=== PATIENT | female | born 1960 | race Caucasian/White ===

== ENCOUNTER → 2024-03-11 14:52 | Outpatient (REF) | payer BC, SELFPAY | LOC: RAD 14:52 | PROVIDERS: ATTENDING PHYSICIAN Obstetrics & Gynecology Gynecology; FAMILY PHYSICIAN Internal Medicine | DX: Z78.0 Asymptomatic menopausal state (principal) | CPT/HCPCS: 77080 ==

== ENCOUNTER 2025-07-15 06:58 | Emergency (ER) | payer BC, SELFPAY ==
[2025-07-15] VITALS (9 sets, daily range): BP systolic 70–118; BP diastolic 51–76; PULSE 69–88
--- NOTE | 2025-07-15 10:02 | ED.GENMED ---
History of Present Illness
General
Chief Complaint: Dizziness
Source: patient
Time Seen by Provider: 07/15/25 09:39
History of Present Illness
History of Present Illness:
64-year-old female presents to the emergency room complaining of dizziness. Patient states that she began to feel like the room was spinning in the melanite after rolling over. She was able to fall asleep but noticed symptoms intermittently
through the night. When she got up this morning she was unable to walk easily to the bathroom to the vertigo. When she ambulated she began to feel nauseous from the vertigo. No headache. No focal weakness numbness or tingling. Symptoms go away
when she remains perfectly still but returned when she moves. No previous episodes such as this.
Phy Exam
Physical Exam
Physical Exam:
General: Awake, Alert, Oriented X3. No acute distress.
Vitals: unremarkable
Head: Atraumatic
Eyes: Pupils equal, EOMI
Throat: Airway intact, no exudates
Neck: Trachea midline
Lungs: Clear and equal b/l
Heart: Regular rate, no murmurs
Abd: Soft, Nontender, No pulsatile mass
Neuro: Cranial nerves intact, muscle strength equal bilaterally, cerebellar exam normal
Skin: Warm, dry, no rash
Extremities: pulses equal b/l, no edema
Course
Orders/Labs/Results
Orders:
Orders
07/15/25 09:59
Ondansetron Injectable [Zofran] 4 mg IV NOW STA
PT Consult [Pt Eval And Treat] Urgent
Treatment: vertigo
Activity Level: As Tolerated
07/15/25 10:05
Basic Metabolic Panel Urgent
Complete Blood Count/With Diff Urgent
07/15/25 11:11
0.9% Sodium Chloride 1000 ml [Nss] 1,000 ml IV BOLUS
Meclizine [Antivert] 25 mg PO NOW STA
Abnormal Lab Results
07/15/25
10:05
WBC 11.2 H 10^3/uL
(4.8-10.8)
MCH 31.7 H pg
(27.0-31.0)
Absolute Neuts (auto) 9.7 H 10^3/uL
(1.4-6.5)
Absolute Lymphs (auto) 0.8 L 10^3/uL
(1.2-3.4)
Neutrophils % 87.3 H %
(42.2-75.2)
Lymphocytes % 7.4 L %
(20.5-51.1)
Sodium 133 L mmol/L
(135-145)
07/15/25 10:05
07/15/25 10:05
Vital Signs
Initial and Last Documented VS:
Initial Vital Signs
Temp Pulse Resp BP Pulse Ox
97.8 F 100 16 118/75 98
07/15/25 07:04 07/15/25 07:04 07/15/25 07:04 07/15/25 07:04 07/15/25 07:04
Last Documented Vital Signs
Temp Pulse Resp BP Pulse Ox
97.8 F 81 16 98/73 98
07/15/25 07:04 07/15/25 13:48 07/15/25 13:48 07/15/25 13:48 07/15/25 10:03
MDM/Problems Addressed
Differential Diagnosis Includes:
Benign positional vertigo, labyrinthitis, dehydration, electrolyte abnormality
MDM/Problems Addressed:
Patient presents with positional vertigo. No focal neurologic deficits. Overall presentation highly consistent with peripheral vertigo. Symptoms exacerbated with head movement. Physical therapy was unable to do any significant evaluation because
she was so symptomatic. They noted her to have some orthostatic hypotension. She was given IV fluids. She felt better but not back to baseline. Recommend continued meclizine as an outpatient as needed. Follow-up with PT for vestibular treatment
as an outpatient. Follow-up primary care provider.
*Pulse Oximetry
SaO2: 98
Oxygen Mode of Delivery: Room air
Patient hypoxic: no
*Critical Care Note
Total Time (30-74mins, 75-104mins- exclusive of procedures): Not Applicable
ED Attending Note
-
Portions of this chart may have been created with voice recognition software.� Occasional wrong word or��sound alike� substitutions may have occurred due to the inherent limitations of voice recognition software.
Discharge Plan
Departure
Patient Disposition: Home (Routine Discharge)
Date of Disposition: 07/15/25
Time of Disposition: 13:11
Patient with high blood pressure during this ER visit?: No
Condition: Good
Discharge Problem:
Benign paroxysmal positional vertigo
Instructions: Vertigo - ED (DC)
Prescriptions:
New
ondansetron 4 mg tablet,disintegrating
4 mg PO Q8H PRN (Reason: nausea and vomiting) Qty: 20 0RF
No Action
cyclosporine [Restasis] 0.05 % Dropperette
1 drp OPHTHALMIC (EYE) .ASDIRECTED
Wegovy
6.25 mg SC .ASDIRECTED
spironolactone
1 tab PO .ASDIRECTED
Referrals:
Drew Field MD [Family Provider, Internal Medicine]
Activity Restrictions/Additional Instructions:
You can take meclizine 25mg every 8 hours to relieve your vertigo. Follow up with your primary care doctor and physical therapy.
Interventions
Interventions:
*Risk Screen - Suicide Last Done: 07/15/25 07:04
*General Assessment Last Done: 07/15/25 07:04
*Neglect/Abuse Screening Last Done: 07/15/25 07:04
*ED COVID-19 Vaccine History Last Done: 07/15/25 07:04
*ED Influenza Vaccine History Last Done: 07/15/25 07:04
[facility] Fall Risk Assessment Tool Last Done: 07/15/25 09:51
*Nursing Disposition Last Done: 07/15/25 13:54
ED- Neurological Assessment Last Done: 07/15/25 09:54
ED- Cardiac Assessment Last Done: 07/15/25 09:54
ED Swallowing Screen Last Done: 07/15/25 11:16
Discharge Date and Time
Discharge Date/Time: 07/15/25 13:57
Print Language: RUSSIAN
[2025-07-15] MEDS: ZOFRAN 4 MG IV (10:11)
[2025-07-15 10:12] LABS: Hematocrit 41.4 % (37.0-47.0); Hemoglobin 13.8 g/dL (12.0-16.0); Mean Corp Hgb Conc. 33.3 g/dL (33.0-37.0); Mean Corpuscular Volume 95.2 fL (81.0-99.0); Nucleated Red Blood Cells % 0 %; Platelet Count 259 10^3/uL (130-400); Red Cell Dist. Width 11.6 % (11.5-14.5)
[2025-07-15 10:38] LABS: Blood Urea Nitrogen 14 mg/dl (7-17); Calcium 9.5 mg/dl (8.4-10.2); Carbon Dioxide 28 mmol/L (22-30); Chloride 99 mmol/L (98-107); Glucose 87 mg/dl (70-99); Potassium 4.3 mmol/L (3.5-5.1); Sodium 133 mmol/L (135-145); eGFR > 60.00
[2025-07-15] MEDS: ANTIVERT 25 MG PO (11:16)
[2025-07-15] MEDS: NSS 1000 IV (11:16)
== END 2025-07-15 13:57 | disposition home or self-care (01) ==
LOC: EMR 06:58
PROVIDERS: EMERGENCY PHYSICIAN Emergency Medicine; FAMILY PHYSICIAN Internal Medicine
DX: H81.10 Benign paroxysmal vertigo, unspecified ear (principal)
CPT/HCPCS: 96374; 96361; 99284; 80048; 85025